=== PATIENT | male | born 1965 | race Caucasian/White ===

== ENCOUNTER 2024-06-18 15:05 | Emergency (ER) | payer BC, SELFPAY ==
[2024-06-18 15:12] VITALS: BP 140/87
[2024-06-18 15:41] LABS: % Basophils 0.4 % (0-2); % Immature Granulocytes 0.4 % (0-0.5); % Lymphocytes 11.2 % (20.5-51.1); % Monocytes 6.5 % (1.7-9.3); % Neutrophils 81.5 % (42.2-75.2); Absolute Lymphocytes 1.1 10^3/uL (1.2-3.4); Absolute Monocytes 0.6 10^3/uL (0.1-0.6); Hematocrit 39.8 % (39.0-52.0); Hemoglobin 13.9 g/dL (13.0-18.0); Mean Corp Hgb Conc. 34.9 g/dL (33.0-37.0); Mean Corpuscular Hgb 31.4 pg (27.0-31.0); Mean Corpuscular Volume 89.8 fL (80.0-94.0); Mean Platelet Volume 11.1 fL (7.4-10.4); Nucleated Red Blood Cells % 0 % (-); Platelet Count 251 10^3/uL (130-400); Red Blood Cell Count 4.43 10^6/uL (4.70-6.10); Red Cell Dist. Width 11.9 % (11.5-14.5); White Blood Cell Count 9.8 10^3/uL (4.8-10.8)
[2024-06-18 16:11] LABS: Troponin I < 0.012 ng/ml
[2024-06-18 16:31] LABS: ALT (SGPT) 27 U/L (0-50); AST (SGOT) 24 U/L (17-59); Albumin 4.9 g/dl (3.5-5.0); Alkaline Phosphatase 50 U/L (38-126); Blood Urea Nitrogen 19 mg/dl (9-20); Calcium 9.7 mg/dl (8.4-10.2); Carbon Dioxide 21 mmol/L (22-30); Chloride 104 mmol/L (98-107); Glucose 116 mg/dl (70-99); Potassium 4.2 mmol/L (3.5-5.1); Sodium 139 mmol/L (135-145); Total Bilirubin 1.2 mg/dl (0.2-1.3); Total Protein 7.5 g/dl (6.3-8.2); eGFR > 60.00
--- NOTE | 2024-06-18 17:47 | ED.GENMED ---
History of Present Illness
<Bridget Leo PA-C - Last Filed: 06/18/24 20:42>
General
Chief Complaint: Chest Pain
Source: patient
Exam Limitations: none
Time Seen by Provider: 06/18/24 17:45
Nursing documentation reviewed up to this point in time: agreed with
History of Present Illness
History of Present Illness:
58-year-old male with history hypertension, hyperlipidemia, CAD, history of ME s/p stent placement presenting to the emergency department for evaluation of chest tightness. Patient states when he woke up this morning around 715 he noticed a mild
tightness in his mid chest. Symptoms have persisted throughout the day although no exertional or pleuritic component. Patient denies any crushing pain, describes this sensation as a tightness in his chest. Patient did have a brief episode of
lightheadedness this morning which has since resolved. Given persistence of 'tightness'patient came to the emergency department evaluation. At this time�patient describes a very mild tightness to his mid chest. Patient denies any associated
shortness of breath, nausea, diaphoresis. No radiation of pain to back, shoulder, jaw.
Patient does have a history of ME in 2020 with a stent placement in his LAD. Patient does describe the symptoms as similar in quality to ME although much less severe.
Patient follows with Dr. Almazan at [facility].
Past History
<Bridget Leo PA-C - Last Filed: 06/18/24 20:42>
Past History
ED Past Medical History: GERD, HTN, ME, Other (Kidney stones) and Other (History of diverticulosis and diverticulitis, colon polyps)
ED Past Surgical History: Orthopedic (Left shoulder surgery) and Other ([place] teeth extraction)
Social History
Tobacco: Former smoker (Cigars)
Alcohol: Occasional
Drug: None
Personal:
Living: with family
Employment: Employed
Family History
Family History: Adopted
Phy Exam
<Bridget Leo PA-C - Last Filed: 06/18/24 20:42>
Physical Exam
Physical Exam:
Vitals: Patient's vital signs are stable. Afebrile
General: Patient is well appearing, no acute distress
Skin: Warm and dry, no rashes or lesions
Head: Normocephalic, atraumatic
Eyes: Sclera nonicteric. EOMs intact. No nystagmus.
Throat: Protecting airway
Neck: Normal ROM, no cervical spine tenderness, no meningismus. No JVD
Cardiac: Regular rate and rhythm, no murmurs. No anterior chest wall reproducible tenderness
Pulm: Normal respiratory effort, no wheezes, rales, rhonchi heard on exam.
Abdomen: No abdominal tenderness.
Extremities: No evidence of cyanosis or edema. Great distal pulses
Neuro: Grossly intact
Psychiatric: Normal affect.
Scores
<Bridget Leo PA-C - Last Filed: 06/18/24 20:42>
Heart Score for Chest Pain Patients
STEMI patient?: No
History: Moderately Suspicious
ECG: Nonspecific Repolarization
Age: >45 - <65 years
Risk Factors: >/= 3 Risk Factors or History of CAD
Troponin: </= Normal Limit
Heart Score for Chest Pain Patients: 5
Heart Score Risk: 20.3% MACE over next 6 weeks
Course
<Bridget Leo PA-C - Last Filed: 06/18/24 20:42>
Orders/Labs/Results
Orders:
Orders
06/18/24 15:05
ECG [Electrocardiogram (*1)] Urgent
Reason for Study: Chest Pain
06/18/24 15:06
EKG- Treatment ONCE
06/18/24 15:35
Complete Blood Count/With Diff Urgent
Comprehensive Metabolic Panel Urgent
Troponin I Urgent
06/18/24 15:53
CR Chest - 2 Views Urgent
Comment:
Reason For Exam: chest pain
06/18/24 18:10
Electrocardiogram (*1) Urgent
Reason for Study: Chest Pain
EKG- Treatment ONCE
06/18/24 18:18
Nitroglycerin Sublingual [Nitrostat (Sublingual)] 0.4 mg SL NOW STA
06/18/24 18:40
Troponin I Urgent
06/18/24 19:15
Acetaminophen [Tylenol] 650 mg PO NOW STA
06/18/24 20:14
Electrocardiogram (*1) Urgent
Reason for Study: Chest Pain
EKG- Treatment ONCE
Abnormal Lab Results
06/18/24
15:35
RBC 4.43 L 10^6/uL
(4.70-6.10)
MCH 31.4 H pg
(27.0-31.0)
MPV 11.1 H fL
(7.4-10.4)
Absolute Neuts (auto) 8.0 H 10^3/uL
(1.4-6.5)
Absolute Lymphs (auto) 1.1 L 10^3/uL
(1.2-3.4)
Neutrophils % 81.5 H %
(42.2-75.2)
Lymphocytes % 11.2 L %
(20.5-51.1)
Carbon Dioxide 21 L mmol/L
(22-30)
Glucose 116 H mg/dl
(70-99)
06/18/24 15:35
06/18/24 15:35
Vital Signs
Initial and Last Documented VS:
Initial Vital Signs
Temp Pulse Resp BP Pulse Ox
97.5 F 57 16 140/87 99
06/18/24 15:12 06/18/24 15:12 06/18/24 15:12 06/18/24 15:12 06/18/24 15:12
Last Documented Vital Signs
Temp Pulse Resp BP Pulse Ox
97.5 F 48 16 120/87 97
06/18/24 15:12 06/18/24 19:45 06/18/24 19:45 06/18/24 19:30 06/18/24 19:45
<Ayush Foreman, DO - Last Filed: 06/18/24 18:29>
Orders/Labs/Results
Orders:
Orders
06/18/24 15:05
ECG [Electrocardiogram (*1)] Urgent
Reason for Study: Chest Pain
06/18/24 15:06
EKG- Treatment ONCE
06/18/24 15:35
Complete Blood Count/With Diff Urgent
Comprehensive Metabolic Panel Urgent
Troponin I Urgent
06/18/24 15:53
CR Chest - 2 Views Urgent
Comment:
Reason For Exam: chest pain
06/18/24 18:10
Electrocardiogram (*1) Urgent
Reason for Study: Chest Pain
EKG- Treatment ONCE
06/18/24 18:18
Nitroglycerin Sublingual [Nitrostat (Sublingual)] 0.4 mg SL NOW STA
06/18/24 18:40
Troponin I Urgent
06/18/24 19:15
Acetaminophen [Tylenol] 650 mg PO NOW STA
06/18/24 20:14
Electrocardiogram (*1) Urgent
Reason for Study: Chest Pain
EKG- Treatment ONCE
Abnormal Lab Results
06/18/24
15:35
RBC 4.43 L 10^6/uL
(4.70-6.10)
MCH 31.4 H pg
(27.0-31.0)
MPV 11.1 H fL
(7.4-10.4)
Absolute Neuts (auto) 8.0 H 10^3/uL
(1.4-6.5)
Absolute Lymphs (auto) 1.1 L 10^3/uL
(1.2-3.4)
Neutrophils % 81.5 H %
(42.2-75.2)
Lymphocytes % 11.2 L %
(20.5-51.1)
Carbon Dioxide 21 L mmol/L
(22-30)
Glucose 116 H mg/dl
(70-99)
06/18/24 15:35
06/18/24 15:35
Vital Signs
Initial and Last Documented VS:
Initial Vital Signs
Temp Pulse Resp BP Pulse Ox
97.5 F 57 16 140/87 99
06/18/24 15:12 06/18/24 15:12 06/18/24 15:12 06/18/24 15:12 06/18/24 15:12
Last Documented Vital Signs
Temp Pulse Resp BP Pulse Ox
97.5 F 48 16 120/87 97
06/18/24 15:12 06/18/24 19:45 06/18/24 19:45 06/18/24 19:30 06/18/24 19:45
<Bridget Leo PA-C - Last Filed: 06/18/24 20:42>
MDM/Problems Addressed
Differential Diagnosis Includes:
Not limited to: Muscular strain, pericarditis, myocarditis, anxiety, ACS
MDM/Problems Addressed:
58-year-old male with history as documented presenting with persistent 'chest tightness 'since waking this morning. Symptoms are mild at this time. No associated shortness of breath, diaphoresis, nausea, back pain. No exertional or pleuritic
component. Vital stable. Exam as above. Patient very well-appearing, no apparent distress. Heart regular rate and rhythm. Lungs clear bilaterally. Patient has no reproducible chest wall tenderness. Patient perfusing well with great distal
pulses. Workup initiated in triage which shows no acute abnormalities. Initial troponin normal. This was drawn 8 hours following onset of symptoms. Chest x-ray shows no acute abnormalities. EKG without any acute ischemic changes. Given history
of ME and LAD stent in 2019 -will trend troponin and speak with cardiology. Will give 1 nitro as patient still endorsing mild symptoms at this time. Will closely monitor and reassess
Chronic conditions affecting care:
Hypertension, hyperlipidemia, CAD
Acute Exacerbation and/or Progression of Chronic Illness:
N/A
<Bridget Leo PA-C - Last Filed: 06/18/24 20:42>
*Radiology
Radiology exam reviewed: preliminary read by ED provider and radiology read reviewed
*Pulse Oximetry
Patient hypoxic: no
*EKG
Interpreted by ED Provider?: Yes
EKG Intrepretation Date: 06/18/24
Interpretation: normal
Comparison EKG: no changes
Heart Rate: 55
Rate: bradycardiac
Rhythm: sinus
[place]: normal axis
Interval: normal interval
QRS Pattern: normal QRS
Ischemia: non-specific ST changes
*Data Clerk Interpretation
Rate: normal
Interpretation: normal
Heart Rate: 52
*Critical Care Note
Total Time (30-74mins, 75-104mins- exclusive of procedures): Not Applicable
Data Reviewed
Review of Other/Old Records Reveals: Operative Reports (Stress echo from 2019-normal)
<Bridget Leo PA-C - Last Filed: 06/18/24 20:42>
Patient Management
Discussion with other providers: Hotel Dining Room Cashier (Cardiology-Dr. Boggs)
<Bridget Leo PA-C - Last Filed: 06/18/24 20:42>
Update Note
Update Note:
Update 7:15 PM: Into reassess patient. Patient states chest tightness has resolved following nitro, although he does have a headache at this time. Will give Tylenol. Repeat troponin pending.
Update 7:43 PM: Repeat troponin negative. Patient remains asymptomatic at this time. Repeat EKG shows no acute ischemic changes. Did discuss case with cardiology, Dr. Boggs. Troponin is negative x 2 12 hours following onset of pain. Lower
suspicion for ACS at this time although patient is at increased risk given history. Did offer patient admission for monitoring and troponin trending versus discharge with close cardiology follow-up. Patient feels comfortable with discharge home
and will monitor his symptoms closely and return with any acute worsening/new symptoms. Patient on chest pain hotline and have close following with cardiology and stress test. Patient discharged in stable condition. Patient seen with attending
physician.
ED Attending Note
<Bridget Leo PA-C - Last Filed: 06/18/24 20:42>
-
Portions of this chart may have been created with voice recognition software.� Occasional wrong word or��sound alike� substitutions may have occurred due to the inherent limitations of voice recognition software.
<Ayush Foreman DO - Last Filed: 06/18/24 18:29>
ED Attending Note
Patient seen and examined by attending physician: Yes
I performed the substantive portion of visit, reviewed & personally made and approve the management plan that is documented in note by myself or ELVIA.: Yes
I performed a history and physical exam of patient and discussed management with resident, I reviewed resident's note and agree with documented findings and plan of care.: Yes
ED Attending Note:
I evaluated the patient at bedside. The patient is very well-appearing. He currently has very minimal chest discomfort described as a pressure sensation but appears very comfortable. EKG and first troponin negative. Will check another troponin
as he describes similar but much less severe symptoms as when he had a heart attack 5 years ago. Cardiology was notified here.
Discharge Plan
Departure
Patient Disposition: Home (Routine Discharge)
Date of Disposition: 06/18/24
Time of Disposition: 20:39
Patient with high blood pressure during this ER visit?: No
Condition: Good
Covid-19: Not Applicable
Discharge Problem:
Chest pain
Instructions: Chest Pain DCA Follow Up, Chest Pain
Prescriptions:
No Action
esomeprazole magnesium [Nexium] 40 MG capsule,delayed release(DR/EC)
1 tab PO DAILY
atorvastatin 80 MG tablet
80 mg PO QPM
aspirin [Aspir-Low] 81 MG tablet,delayed release (DR/EC)
81 mg PO DAILY
lisinopril 2.5 MG tablet
2.5 mg PO DAILY
ezetimibe 10 MG tablet
10 mg PO DAILY
metoprolol tartrate 25 MG tablet
25 mg PO DAILY
Referrals:
Guillermo Boggs MD [Active] - Follow up in 2-3 days
Tyshawn Gan MD [Family Provider] -
Activity Restrictions/Additional Instructions:
RETURN TO THE EMERGENCY DEPARTMENT WITH ANY REPEAT CHEST PAIN, SHORTNESS OF BREATH, NAUSEA, BACK PAIN, JAW PAIN, SWEATING, LIGHTHEADEDNESS, WORSENING IN CURRENT SYMPTOMS, OR ANY OTHER CONCERNS
-You should take it easy over the next few days. Avoid any physical activity/other exertional activities until cleared by cardiology. Continue to take all your medications as prescribed. Stay well-hydrated.
-Follow-up with cardiology in a day or 2 for further evaluation/management. You should contact them if you do not hear from them tomorrow.
Monitor your symptoms closely and return to the emergency department with any worsening/new
Interventions
Interventions:
*Risk Screen - Suicide Last Done: 06/18/24 18:30
*General Assessment Last Done: 06/18/24 18:30
*Neglect/Abuse Screening Last Done: 06/18/24 18:30
*ED COVID-19 Vaccine History Last Done: 06/18/24 18:30
ED- Cardiac Assessment Last Done: 06/18/24 18:30
Discharge Date and Time
Print Language: MAORI
[2024-06-18] MEDS: NITROSTAT (SUBLINGUAL) 0.4 MG SL (18:28)
[2024-06-18 19:00] VITALS: BP 124/93
[2024-06-18] MEDS: TYLENOL 650 MG PO (19:22)
[2024-06-18 19:30] VITALS: BP 120/87
[2024-06-18 19:37] LABS: Troponin I < 0.012 ng/ml
[2024-06-18 20:00] VITALS: BP 123/84
[2024-06-18 20:30] VITALS: BP 134/91
[2024-06-18 21:00] VITALS: BP 126/89
== END 2024-06-18 21:29 | disposition home or self-care (01) ==
LOC: EMR 15:05
PROVIDERS: Physician Assistant; Student in an Organized Health Care Education/Training Program; EMERGENCY PHYSICIAN Emergency Medicine; FAMILY PHYSICIAN Family Medicine
DX: R07.89 Other chest pain (principal); R51.9 Headache, unspecified; R42 Dizziness and giddiness; I10 Essential (primary) hypertension; E78.5 Hyperlipidemia, unspecified; I25.10 Atherosclerotic heart disease of native coronary artery without angina pectoris; K21.9 Gastro-esophageal reflux disease without esophagitis; K57.90 Diverticulosis of intestine, part unspecified, without perforation or abscess without bleeding; I25.2 Old myocardial infarction; Z95.5 Presence of coronary angioplasty implant and graft; Z87.442 Personal history of urinary calculi; Z87.891 Personal history of nicotine dependence; Z79.82 Long term (current) use of aspirin
CPT/HCPCS: 99284; 71046; 80053; 84484; 85025; 93005

== ENCOUNTER → 2024-06-24 12:32 | Outpatient (REF) | payer BC, SELFPAY | LOC: RCS 12:32 | PROVIDERS: ATTENDING PHYSICIAN Internal Medicine Cardiovascular Disease; FAMILY PHYSICIAN Family Medicine | DX: R07.9 Chest pain, unspecified (principal) | CPT/HCPCS: 93017; 93350 ==

== ENCOUNTER 2025-07-28 06:18 | Day surgery (SDC) | payer BC, SELFPAY | END 2025-07-28 15:38 | disposition home or self-care (01) | LOC: GI 06:18 | PROVIDERS: ATTENDING PHYSICIAN Specialist | DX: Z12.11 Encounter for screening for malignant neoplasm of colon (principal); K57.30 Diverticulosis of large intestine without perforation or abscess without bleeding; Z86.0101 Personal history of adenomatous and serrated colon polyps | CPT/HCPCS: G0105 ==